=== PATIENT | male | born 1960 | race African-American/Black ===

== ENCOUNTER 2020-10-06 14:52 | Emergency (ER) | payer OTHER ==
[2020-10-06 15:15] VITALS: PULSE 65; TEMP 97.7; BMI 27.1
[2020-10-06 15:52] VITALS: BP 108/67
== END 2020-10-06 18:35 | disposition home or self-care (01) ==
LOC: JER 14:52
DX: T40.2X1A Poisoning by other opioids, accidental (unintentional), initial encounter (principal)
CPT/HCPCS: 93005; 93010; 99284-25

== ENCOUNTER 2020-10-06 18:56 | Inpatient (IN) | payer OTHER ==
[2020-10-06] MEDS ORDERED: IBUPROFEN 400 MG TABLET (FP) PO PRN (20:01)
[2020-10-06] MEDS ORDERED: ACETAMINOPHEN 325 MG TABLET (FP) PO PRN ×2 (20:01)
[2020-10-06] MEDS ORDERED: ONDANSETRON *ODT* 4 MG TABLET SL PRN (20:01)
[2020-10-06] MEDS ORDERED: BISMUTH SUBSALICYLATE 524 MG/30 ML PO PRN (20:01)
[2020-10-06] MEDS ORDERED: MAG HYDROX/AL HYDROX/SIMETH 30 ML UNIT-DOSE CUP PO PRN (20:01)
[2020-10-06] MEDS ORDERED: MAGNESIUM HYDROX 2400MG/30ML ORAL SUSPENSION 30 ML CUP PO PRN (20:01)
[2020-10-06] MEDS ORDERED: MAGNESIUM CITRATE 300 ML BOTTLE PO PRN (20:01)
[2020-10-06] MEDS ORDERED: hydrOXYzine PAMOATE 25 MG CAPSULE (FP) PO PRN (20:01)
[2020-10-06] MEDS ORDERED: MENTHOL/PHENOL 1 EACH UD MM PRN (20:01)
[2020-10-06 20:18] VITALS: BMI 31.1
[2020-10-06] MEDS: THIAMINE HCL 100 MG TABLET (FP) PO SCH (22:17)
[2020-10-06] MEDS: MELATONIN 5 MG TABLETS PO SCH (22:17)
[2020-10-07] MEDS: PRENATAL VITAMINS W/ FOLIC ACID TABLET (FP) PO SCH (10:16)
[2020-10-07] MEDS ORDERED: METHADONE HCL 10 MG TABLET (FOR DETOX USE ONLY) PO ONE (11:00)
[2020-10-07 11:02] LABS: HEMATOCRIT 41.4 % (35.4-49); HEMOGLOBIN 13.7 GM/dL (11.7-16.9); MCH 28.1 pg (25.7-33.7); MCHC 33.2 g/dl (32.0-35.9); MEAN CELL VOLUME 84.7 fl (80-96); MEAN PLT VOLUME 9.8 fl (7.5-11.1); PLATELET COUNT 258 K/MM3 (134-434); RBC 4.88 M/mm3 (4.00-5.60); RDW 16.8 % (11.9-15.9); WHITE BLOOD COUNT 5.1 K/mm3 (4.0-10.0)
[2020-10-07 11:34] LABS: CALCIUM 9.1 mg/dL (8.5-10.1)
[2020-10-07 11:35] LABS: ALBUMIN 3.6 g/dl (3.4-5.0); BLOOD UREA NITROGEN 17.1 mg/dL (7-18)
[2020-10-07 11:38] LABS: CREATININE 0.9 mg/dL (0.55-1.3)
[2020-10-07 11:40] LABS: BILIRUBIN,TOTAL 0.6 mg/dL (0.2-1); TOT PROT 6.9 g/dl (6.4-8.2)
[2020-10-07] MEDS: cloNIDine HCL 0.1 MG TABLET PO PRN (11:45)
[2020-10-07] MEDS: METHOCARBAMOL 500 MG TABLET PO PRN (11:48)
[2020-10-07] MEDS: MELATONIN 5 MG TABLETS PO SCH (22:38)
[2020-10-07] MEDS: THIAMINE HCL 100 MG TABLET (FP) PO SCH (22:38)
[2020-10-08] MEDS ORDERED: METHADONE HCL 5 MG TABLET (FOR DETOX USE ONLY) ONE (09:11)
[2020-10-08] MEDS ORDERED: METHADONE HCL 10 MG TABLET (FOR DETOX USE ONLY) ONE (09:11)
[2020-10-08] MEDS ORDERED: METHADONE (DETOX) 20 MG, METHADONE (DETOX) 5 MG PO ONE (10:00)
[2020-10-08] MEDS: PRENATAL VITAMINS W/ FOLIC ACID TABLET (FP) PO SCH (10:22)
[2020-10-08] MEDS: cloNIDine HCL 0.1 MG TABLET PO PRN (10:23)
[2020-10-08] MEDS: METHOCARBAMOL 500 MG TABLET PO PRN (10:23)
[2020-10-08] MEDS ORDERED: NICOTINE POLACRILEX 2 MG GUM BC PRN (12:41)
[2020-10-08] MEDS: NICOTINE 21 MG/24 HOURS TOPICAL PATCH TD SCH (14:01)
[2020-10-08] MEDS: THIAMINE HCL 100 MG TABLET (FP) PO SCH (22:44)
[2020-10-08] MEDS: MELATONIN 5 MG TABLETS PO SCH (22:44)
[2020-10-09] MEDS ORDERED: METHADONE HCL 10 MG TABLET (FOR DETOX USE ONLY) PO ONE (10:00)
[2020-10-09] MEDS: cloNIDine HCL 0.1 MG TABLET PO PRN (10:16)
[2020-10-09] MEDS: NICOTINE 21 MG/24 HOURS TOPICAL PATCH TD SCH (10:16)
[2020-10-09] MEDS: PRENATAL VITAMINS W/ FOLIC ACID TABLET (FP) PO SCH (10:16)
[2020-10-09] MEDS: METHOCARBAMOL 500 MG TABLET PO PRN (10:16)
[2020-10-09] MEDS: busPIRone HCL 5 MG TABLET PO SCH (21:51)
[2020-10-09] MEDS: THIAMINE HCL 100 MG TABLET (FP) PO SCH (21:51)
[2020-10-09] MEDS: MIRTAZAPINE 15 MG TABLET (FP) PO SCH (21:52)
[2020-10-09] MEDS: MELATONIN 5 MG TABLETS PO SCH (21:52)
[2020-10-10] MEDS ORDERED: METHADONE HCL 10 MG TABLET (FOR DETOX USE ONLY) ONE (08:05)
[2020-10-10] MEDS ORDERED: METHADONE HCL 5 MG TABLET (FOR DETOX USE ONLY) ONE (08:05)
[2020-10-10] MEDS ORDERED: METHADONE (DETOX) 10 MG, METHADONE (DETOX) 5 MG PO ONE (10:00)
[2020-10-10] MEDS: busPIRone HCL 5 MG TABLET PO SCH ×2 (10:26→22:17)
[2020-10-10] MEDS: PRENATAL VITAMINS W/ FOLIC ACID TABLET (FP) PO SCH (10:26)
[2020-10-10] MEDS: NICOTINE 21 MG/24 HOURS TOPICAL PATCH TD SCH (10:27)
[2020-10-10] MEDS: ARIPiprazole 2 MG TABLET PO SCH (11:56)
[2020-10-10] MEDS: NICOTINE POLACRILEX 2 MG GUM BUC PRN (13:52)
[2020-10-10] MEDS: MIRTAZAPINE 15 MG TABLET (FP) PO SCH (22:17)
[2020-10-10] MEDS: MELATONIN 5 MG TABLETS PO SCH (22:17)
[2020-10-10] MEDS: THIAMINE HCL 100 MG TABLET (FP) PO SCH (22:17)
[2020-10-11] MEDS ORDERED: METHADONE HCL 10 MG TABLET (FOR DETOX USE ONLY) PO ONE (10:00)
[2020-10-11] MEDS: busPIRone HCL 5 MG TABLET PO SCH ×2 (10:17→21:49)
[2020-10-11] MEDS: ARIPiprazole 2 MG TABLET PO SCH (10:17)
[2020-10-11] MEDS: PRENATAL VITAMINS W/ FOLIC ACID TABLET (FP) PO SCH (10:17)
[2020-10-11] MEDS: NICOTINE 21 MG/24 HOURS TOPICAL PATCH TD SCH (10:18)
[2020-10-11] MEDS: NICOTINE POLACRILEX 2 MG GUM BUC PRN (18:17)
[2020-10-11] MEDS: THIAMINE HCL 100 MG TABLET (FP) PO SCH (21:49)
[2020-10-11] MEDS: MIRTAZAPINE 15 MG TABLET (FP) PO SCH (21:49)
[2020-10-11] MEDS: MELATONIN 5 MG TABLETS PO SCH (21:50)
[2020-10-12] MEDS ORDERED: METHADONE HCL 5 MG TABLET (FOR DETOX USE ONLY) PO ONE (06:00)
[2020-10-12 09:22] VITALS: BP 112/73; PULSE 62; TEMP 96.2
[2020-10-12] MEDS: ARIPiprazole 2 MG TABLET PO SCH (10:01)
[2020-10-12] MEDS: busPIRone HCL 5 MG TABLET PO SCH (10:01)
[2020-10-12] MEDS: PRENATAL VITAMINS W/ FOLIC ACID TABLET (FP) PO SCH (10:01)
[2020-10-12] MEDS: NICOTINE 21 MG/24 HOURS TOPICAL PATCH TD SCH (10:02)
== END 2020-10-12 12:00 | disposition other institution (70) | DRG 897 ==
LOC: YASAS 18:56 → UNDOADMIN 20:24 → Y3N 20:24
PROVIDERS: ADMIT Allergy & Immunology; ATTEND Allergy & Immunology
PROC: HZ2ZZZZ Detoxification Services for Substance Abuse Treatment (ICD-10-PCS; principal; 2020-10-06)
DX: F10.230 Alcohol dependence with withdrawal, uncomplicated (principal); F16.20 Hallucinogen dependence, uncomplicated; F11.23 Opioid dependence with withdrawal; F12.20 Cannabis dependence, uncomplicated; F17.210 Nicotine dependence, cigarettes, uncomplicated; F31.9 Bipolar disorder, unspecified; F20.9 Schizophrenia, unspecified; F19.24 Other psychoactive substance dependence with psychoactive substance-induced mood disorder; B18.2 Chronic viral hepatitis C; G47.00 Insomnia, unspecified; Z96.643 Presence of artificial hip joint, bilateral; Z91.14 Patient's other noncompliance with medication regimen
CPT/HCPCS: 36415; 80053; 85027; 86780; C9803; J0735; Q0162; U0003; U0005

== ENCOUNTER 2020-11-09 17:45 | Inpatient (IN) | payer OTHER ==
[2020-11-10 00:32] VITALS: BMI 32.8
[2020-11-10] MEDS ORDERED: IBUPROFEN 400 MG TABLET (FP) PO PRN (01:37)
[2020-11-10] MEDS ORDERED: methaDONE HCL 10 MG TABLET (FOR DETOX USE ONLY) PO ONE (01:37)
[2020-11-10] MEDS ORDERED: BISMUTH SUBSALICYLATE 524 MG/30 ML PO PRN (01:37)
[2020-11-10] MEDS ORDERED: MAG HYDROX/AL HYDROX/SIMETH 30 ML UNIT-DOSE CUP PO PRN (01:37)
[2020-11-10] MEDS ORDERED: cloNIDine HCL 0.1 MG TABLET PO PRN (01:37)
[2020-11-10] MEDS ORDERED: MAGNESIUM HYDROX 2400MG/30ML ORAL SUSPENSION 30 ML CUP PO PRN (01:37)
[2020-11-10] MEDS ORDERED: ACETAMINOPHEN 325 MG TABLET (FP) PO PRN ×2 (01:37)
[2020-11-10] MEDS ORDERED: MAGNESIUM CITRATE 300 ML BOTTLE PO PRN (01:37)
[2020-11-10] MEDS ORDERED: MENTHOL/PHENOL 1 EACH UD MM PRN (01:37)
[2020-11-10] MEDS ORDERED: ONDANSETRON *ODT* 4 MG TABLET SL PRN (01:37)
[2020-11-10] MEDS ORDERED: methaDONE HCL 10 MG TABLET (FOR DETOX USE ONLY) ONE (02:53)
[2020-11-10] MEDS: NICOTINE 14 MG/24 HOURS TOPICAL PATCH TD SCH (10:49)
[2020-11-10] MEDS: PRENATAL VITAMINS W/ FOLIC ACID TABLET (FP) PO SCH (10:49)
[2020-11-10] MEDS: busPIRone HCL 5 MG TABLET PO SCH ×2 (11:23→22:31)
[2020-11-10] MEDS: ARIPiprazole 2 MG TABLET PO SCH (11:23)
[2020-11-10 12:42] LABS: HEMATOCRIT 42.2 % (35.4-49); MCH 28.4 pg (25.7-33.7); MCHC 33.1 g/dl (32.0-35.9); MEAN CELL VOLUME 85.7 fl (80-96); MEAN PLT VOLUME 8.8 fl (7.5-11.1); PLATELET COUNT 245 10^3/uL (134-434); RBC 4.92 M/mm3 (4.00-5.60); WHITE BLOOD COUNT 7.7 K/mm3 (4.0-10.0)
[2020-11-10 12:55] LABS: ALBUMIN 4.3 g/dl (3.4-5.0); BLOOD UREA NITROGEN 16.8 mg/dL (7-18); CALCIUM 9.3 mg/dL (8.5-10.1)
[2020-11-10 12:59] LABS: BILIRUBIN,TOTAL 0.5 mg/dL (0.2-1); CREATININE 0.9 mg/dL (0.55-1.3); TOT PROT 8.2 g/dl (6.4-8.2)
[2020-11-10] MEDS: NICOTINE POLACRILEX 2 MG GUM BUC PRN (21:00)
[2020-11-10] MEDS ORDERED: traZODone HCL 50 MG TABLET (FP) PO SCH (22:00)
[2020-11-10] MEDS ORDERED: MELATONIN 5 MG TABLETS PO SCH (22:00)
[2020-11-10] MEDS: THIAMINE HCL 100 MG TABLET (FP) PO SCH (22:31)
[2020-11-11] MEDS ORDERED: methaDONE HCL 10 MG TABLET (FOR DETOX USE ONLY) ONE (09:32)
[2020-11-11] MEDS: busPIRone HCL 5 MG TABLET PO SCH ×2 (10:41→22:36)
[2020-11-11] MEDS: NICOTINE 14 MG/24 HOURS TOPICAL PATCH TD SCH (10:41)
[2020-11-11] MEDS: ARIPiprazole 2 MG TABLET PO SCH (10:41)
[2020-11-11] MEDS: PRENATAL VITAMINS W/ FOLIC ACID TABLET (FP) PO SCH (10:42)
[2020-11-11] MEDS: NICOTINE POLACRILEX 2 MG GUM BUC PRN ×2 (11:13→19:08)
[2020-11-11] MEDS: THIAMINE HCL 100 MG TABLET (FP) PO SCH (22:35)
[2020-11-11] MEDS: QUEtiapine FUMARATE 50 MG TABLET PO SCH (22:36)
[2020-11-12] MEDS ORDERED: methaDONE HCL 10 MG TABLET (FOR DETOX USE ONLY) PO ONE (10:00)
[2020-11-12] MEDS: busPIRone HCL 5 MG TABLET PO SCH ×2 (10:33→22:45)
[2020-11-12] MEDS: PRENATAL VITAMINS W/ FOLIC ACID TABLET (FP) PO SCH (10:33)
[2020-11-12] MEDS: METHOCARBAMOL 500 MG TABLET PO PRN (10:33)
[2020-11-12] MEDS: NICOTINE 14 MG/24 HOURS TOPICAL PATCH TD SCH (10:35)
[2020-11-12] MEDS: NICOTINE POLACRILEX 2 MG GUM BUC PRN ×2 (13:17→15:46)
[2020-11-12] MEDS: QUEtiapine FUMARATE 50 MG TABLET PO SCH (22:45)
[2020-11-12] MEDS: THIAMINE HCL 100 MG TABLET (FP) PO SCH (22:45)
[2020-11-13] MEDS ORDERED: methaDONE HCL 10 MG TABLET (FOR DETOX USE ONLY) ONE (09:04)
[2020-11-13] MEDS: busPIRone HCL 5 MG TABLET PO SCH ×2 (10:15→22:31)
[2020-11-13] MEDS: NICOTINE 14 MG/24 HOURS TOPICAL PATCH TD SCH (10:15)
[2020-11-13] MEDS: PRENATAL VITAMINS W/ FOLIC ACID TABLET (FP) PO SCH (10:17)
[2020-11-13] MEDS: NICOTINE POLACRILEX 2 MG GUM BUC PRN ×2 (14:28→20:30)
[2020-11-13] MEDS: QUEtiapine FUMARATE 25 MG TABLET PO SCH (22:31)
[2020-11-13] MEDS: THIAMINE HCL 100 MG TABLET (FP) PO SCH (22:31)
[2020-11-14] MEDS: METHOCARBAMOL 500 MG TABLET PO PRN (06:54)
[2020-11-14] MEDS: busPIRone HCL 5 MG TABLET PO SCH ×2 (09:43→23:48)
[2020-11-14] MEDS: PRENATAL VITAMINS W/ FOLIC ACID TABLET (FP) PO SCH (09:43)
[2020-11-14] MEDS ORDERED: methaDONE HCL 10 MG TABLET (FOR DETOX USE ONLY) PO ONE (10:00)
[2020-11-14] MEDS: NICOTINE 14 MG/24 HOURS TOPICAL PATCH TD SCH (10:26)
[2020-11-14] MEDS: QUEtiapine FUMARATE 25 MG TABLET PO SCH (23:47)
[2020-11-14] MEDS: THIAMINE HCL 100 MG TABLET (FP) PO SCH (23:48)
[2020-11-15] MEDS: PRENATAL VITAMINS W/ FOLIC ACID TABLET (FP) PO SCH (09:48)
[2020-11-15] MEDS: busPIRone HCL 5 MG TABLET PO SCH (09:48)
[2020-11-15] MEDS: NICOTINE 14 MG/24 HOURS TOPICAL PATCH TD SCH (09:48)
[2020-11-15 12:08] VITALS: BP 111/79; PULSE 70; TEMP 96
== END 2020-11-15 10:27 | disposition home or self-care (01) | DRG 897 ==
LOC: YASAS 17:45 → Y3N 11-10 08:20
PROVIDERS: ADMIT Allergy & Immunology; ATTEND Allergy & Immunology
PROC: HZ2ZZZZ Detoxification Services for Substance Abuse Treatment (ICD-10-PCS; principal; 2020-11-10)
DX: F11.23 Opioid dependence with withdrawal (principal); F14.20 Cocaine dependence, uncomplicated; F16.20 Hallucinogen dependence, uncomplicated; F10.20 Alcohol dependence, uncomplicated; F12.20 Cannabis dependence, uncomplicated; F17.210 Nicotine dependence, cigarettes, uncomplicated; F20.9 Schizophrenia, unspecified; F31.9 Bipolar disorder, unspecified; F19.24 Other psychoactive substance dependence with psychoactive substance-induced mood disorder; G47.00 Insomnia, unspecified; I10 Essential (primary) hypertension; M17.11 Unilateral primary osteoarthritis, right knee; M16.0 Bilateral primary osteoarthritis of hip; Z86.19 Personal history of other infectious and parasitic diseases
CPT/HCPCS: 36415; 80053; 85027; 86780; 93005; 93010; C9803; U0003; U0005